=== PATIENT | female | born 1930 | race Caucasian/White ===

== ENCOUNTER → 2016-08-18 | Outpatient (CLI) | payer OTHER | LOC: RAD 01:15 | DX: Z12.31 Encounter for screening mammogram for malignant neoplasm of breast (principal) ==

== ENCOUNTER 2019-05-21 14:43 | Emergency (ER) | payer OTHER ==
[~2019-05-21] VITALS: Ht 165.1 cm; Wt 69.4 kg
[2019-05-21 19:04] VITALS: BP 141/69
== END 2019-05-21 19:05 | disposition home or self-care (01) ==
LOC: ER 14:43
DX: S01.81XA Laceration without foreign body of other part of head, initial encounter (principal); S01.412A Laceration without foreign body of left cheek and temporomandibular area, initial encounter; M25.532 Pain in left wrist; Z90.710 Acquired absence of both cervix and uterus; Z88.0 Allergy status to penicillin; Z88.1 Allergy status to other antibiotic agents; Z88.6 Allergy status to analgesic agent; Z88.8 Allergy status to other drugs, medicaments and biological substances; W01.0XXA Fall on same level from slipping, tripping and stumbling without subsequent striking against object, initial encounter; Y93.89 Activity, other specified; Y92.89 Other specified places as the place of occurrence of the external cause; Y99.8 Other external cause status

== ENCOUNTER 2019-05-26 09:22 | Emergency (ER) | payer OTHER ==
[~2019-05-26] VITALS: Ht 165.1 cm; Wt 69.4 kg
[2019-05-26 10:47] VITALS: BP 165/84
== END 2019-05-26 10:48 | disposition home or self-care (01) ==
LOC: ER 09:22
DX: Z48.02 Encounter for removal of sutures (principal); Z90.710 Acquired absence of both cervix and uterus; Z88.6 Allergy status to analgesic agent; Z88.1 Allergy status to other antibiotic agents; Z88.0 Allergy status to penicillin; Z88.8 Allergy status to other drugs, medicaments and biological substances